=== PATIENT | male | born 1995 | race African-American/Black ===

== ENCOUNTER 2018-09-16 11:50 | Emergency (ER) | payer SELFPAY ==
[2018-09-16] MEDS ORDERED: cefTRIAXone SODIUM 250 MG INJ ONE (12:06)
[2018-09-24 07:49] LABS: APPEARANCE,URINE CLEAR (CLEAR); COLOR,URINE YELLOW (YELLOW)
[2018-09-24 07:50] LABS: OCCULT BLOOD,URINE TRACE-INTACT (NEGATIVE)
[2018-09-24 07:59] LABS: APPEARANCE,URINE CLEAR (CLEAR); COLOR,URINE YELLOW (YELLOW); OCCULT BLOOD,URINE TR (NEGATIVE)
== END 2018-09-16 12:55 ==
LOC: ED 11:50
DX: Z20.2 Contact with and (suspected) exposure to infections with a predominantly sexual mode of transmission (principal)
CPT/HCPCS: 81002; 87491; 87591; 99282; J0696